=== PATIENT | male | born 1990 | race Asian ===

== ENCOUNTER → 2020-04-08 | Outpatient (CLI) | payer OTHER | LOC: COL.RAD 14:07 | DX: R13.10 Dysphagia, unspecified (principal) ==

== ENCOUNTER → 2020-04-11 | Outpatient (CLI) | payer OTHER | LOC: COL.RAD 12:42 | DX: S93.491A Sprain of other ligament of right ankle, initial encounter (principal); S93.492A Sprain of other ligament of left ankle, initial encounter; M19.071 Primary osteoarthritis, right ankle and foot ==